=== PATIENT | female | born 1955 | race Caucasian/White ===

== ENCOUNTER 2017-03-07 22:29 | Emergency (ER) | payer MEDICAID ==
[~2017-03-07] VITALS: Ht 160 cm; Wt 54.0 kg
[2017-03-07 22:32] VITALS: Ht 160 cm; Wt 54.0 kg
[2017-03-07] MEDS ORDERED: SOD CHLORIDE 0.9% 1,000 ML IV STA (23:39)
[2017-03-07] MEDS ORDERED: ONDANSETRON 4 MG INJ IV STA (23:39)
[2017-03-07] MEDS ORDERED: morphine 4 MG/ML VIAL IV STA (23:39)
[2017-03-08 00:03] LABS: ABNORMAL IP MESSAGE 1; BASOPHIL # 0.1 10^3/ul (0.0-0.1); BASOPHILS % 0.6 % (0.0-2.0); EOSINOPHILS # 0.1 10^3/ul (0.0-0.5); EOSINOPHILS % 0.9 % (0.0-7.0); HEMATOCRIT 38.5 % (37.0-47.0); HEMOGLOBIN 12.8 g/dl (12.0-16.0); LYMPHOCYTES # 1.5 10^3/ul (0.8-2.9); LYMPHOCYTES % 16.9 % (15.0-51.0); MEAN CORPUSCULAR HEMOGLOBIN 31.9 pg (29.0-33.0); MEAN CORPUSCULAR HGB CONC 33.2 g/dl (32.0-37.0); MEAN PLATELET VOLUME 10.7 fl (7.4-10.4); MONOCYTE # 1.9 10^3/ul (0.3-0.9); MONOCYTES % 21.8 % (0.0-11.0); NEUTROPHIL # 5.2 10^3/ul (1.6-7.5); NEUTROPHILS % 59.5 % (39.0-77.0); PLATELET COUNT 324 10^3/UL (140-415); RED BLOOD COUNT 4.01 10^6/ul (4.20-5.40); RED CELL DISTRIBUTION WIDTH 15.3 % (11.5-14.5); WHITE BLOOD COUNT 8.8 10^3/ul (4.8-10.8)
[2017-03-08 00:19] LABS: INR 0.94; PROTIME 12.6 Sec (12.2-14.2)
[2017-03-08 00:20] LABS: PARTIAL THROMBOPLASTIN TIME 30.9 Sec (25.0-35.0)
[2017-03-08 00:25] LABS: ADD SCAN DIFF NO
[2017-03-08 00:38] LABS: ALBUMIN 4.6 g/dl (3.3-4.9); ALBUMIN/GLOBULIN RATIO 1.17; BILIRUBIN,INDIRECT 0.2 mg/dl (0-1.1); BILIRUBIN,TOTAL 0.2 mg/dl (0.2-1.3); CALCIUM 9.4 mg/dl (8.4-10.2); CREATININE 0.56 mg/dl (0.44-1.00); POTASSIUM 3.7 mmol/L (3.5-5.1); TOTAL PROTEIN 8.5 g/dl (6.1-8.1)
[2017-03-08 00:40] LABS: ADD UMIC NO; UR ASCORBIC ACID NEGATIVE (NEGATIVE); UR BILIRUBIN (Dip) NEGATIVE (NEGATIVE); UR BLOOD (Dip) NEGATIVE (NEGATIVE); UR CLARITY SLIGHTLY CLOUDY (CLEAR); UR COLOR YELLOW (YELLOW); UR GLUCOSE (Dip) NEGATIVE (NEGATIVE); UR KETONES (Dip) NEGATIVE (NEGATIVE); UR LEUKOCYTE ESTERASE (Dip) NEGATIVE Leu/ul (NEGATIVE); UR MUCUS FEW /HPF (NONE SEEN); UR NITRITE (Dip) NEGATIVE (NEGATIVE); UR RBC 0 /HPF (0-5); UR SPECIFIC GRAVITY (Dip) 1.015 (1.003-1.030); UR SQUAMOUS EPITHELIAL CELL FEW /HPF (FEW); UR TOTAL PROTEIN (Dip) NEGATIVE (NEGATIVE); UR UROBILINOGEN (Dip) 1+ mg/dL (NEGATIVE)
[2017-03-08] MEDS ORDERED: SOD CHLORIDE 0.9% 100 ML ONE (00:59)
[2017-03-08] MEDS ORDERED: IOHEXOL 300MG/ML 150 ML BTL ONE (00:59)
--- NOTE | 2017-03-08 01:53 | RADRPT ---
PROCEDURE: CT abdomen and pelvis with intravenous contrast. CLINICAL INDICATION: Pain. TECHNIQUE: CT of the abdomen/pelvis was performed utilizing axial images with reconstructions in s agittal and coronal planes after uneventful administration of 100 cc Omnipaque 300. The administered radiation dose is CTDI 5.8 mGy, DLP 300 mGy-cm. COMPARISON: No pertinent prior examinations were submitted for comparison. FINDINGS: Visualized Chest: There is mild atelectasis at the right lung base. Abdomen: The spleen, pancreas, gallbladder,and adrenal glands are unremarkable. The liver is diffusely dec reased in attenuation, compatible with hepatic steatosis. The kidneys are without hydronephrosis. No definite urinary calculi are seen. There is no evidence of bowel obstruction. The appendix is normal. No intra-abdominal free air is seen. Numerous diverticula are noted along the descending and sigmoid colon. There is thickening o f the mid sigmoid colon with mild surrounding inflammatory changes. There is no evidence of intra-abdominal adenopathy or free fluid. Some mild subcutaneous hematoma is noted within the left lower quadrant anterior abdominal wall. Pelvis: There is enlargement of the left greater than right gonadal veins with varices in the pelvis. Uterus is heterogeneous enhancement with multiple small fibroids. The ovaries are without enlargeme nt. There is no pelvic adenopathy or free fluid. Osseous structures: Unremarkable. IMPRESSION: Colonic diverticulosis with diverticulitis of the mid sigmoid colon. Enlargement of the gonadal veins suggestive of pelvic vascular congestion. Hepatic steatosis. Fibroid uterus. Mild subcutaneous hematoma in the left lower quadrant anterior abdominal wall questionably due to re cent trauma or medication injection. RPTAT: HIKT .Karthikeyan Flynn MD, MD Date Time Electronically viewed and signed by .Karthikeyan Flynn MD, on 03/08/2017 01:52 .T/
[2017-03-08] MEDS ORDERED: KETOROLAC 15 MG INJ IV STA (01:58)
[2017-03-08] MEDS ORDERED: CIPROFLOXACIN 400MG/D5W 200 ML IVPB ONE (02:00)
[2017-03-08] MEDS ORDERED: metroNIDAZOLE 500 MG/NS (PMX) 100 ML IVPB ONE (02:00)
--- NOTE | 2017-03-08 02:04 | ERD ---
ER Documentation Chief Complaint Date/Time DATE: 03/08/17 TIME: 02:01 Chief Complaint BIBA FOR ABD PAIN WITH N/V, HAS A LARGE HEMATOMA IN LOWER ABD HPI This 62-year-old female came in for lower mid abdominal pain mostly in the left side as well as some nausea and vomiting. She has some nausea now she has not vomited since yesterday running. States that she has a hematoma in her abdominal wall has been present is being followed. She denies any fever and chills. Denies any urinary frequency. She has not had any constipation or diarrhea. She has been having normal bowel movements. ROS All systems reviewed and are negative except as per history of present illness. Medications Home Meds Active Scripts Polyethylene Glycol* (Miralax*) 17 Gm Powd.pack, 17 GM PO DAILY for CONSTIPATION , #7 Prov:TESSIEBERE DO 03/08/17 Ondansetron (Ondansetron Odt) 4 Mg Tab.rapdis, 4 MG PO Q6H Y for NAUSEA AND/OR VOMITING, #10 TAB Prov:BERE KURTZ DO 03/08/17 Naproxen* (Naproxen*) 375 Mg Tablet, 375 MG PO BID, #20 TAB Prov:TESSIEBERE DO 03/08/17 Hydrocodone/Acetaminophen (Cedar 5-325 Tablet) 1 Each Tablet, 1 EACH PO Q6 for SEVERE PAIN LEVEL 7-10, #20 TAB Prov:TESSIEBERE DO 03/08/17 Metronidazole* (Flagyl*) 500 Mg Tablet, 500 MG PO Q8, #30 TAB Prov:BERE KURTZ DO 03/08/17 Ciprofloxacin Hcl* (Ciprofloxacin Hcl*) 500 Mg Tablet, 500 MG PO BID, #14 TAB Prov:TESSIEBERE DO 03/08/17 Allergies Allergies: Coded Allergies: No Known Allergy (Unverified , 12/15/14) PMhx/Soc History of Surgery: Yes (Knee, hemorrhoid sx) Anesthesia Reaction: No Hx Neurological Disorder: No Hx Respiratory Disorders: No Hx Cardiac Disorders: No Hx Psychiatric Problems: Yes (SCHIZOPHRENIC) Hx Miscellaneous Medical Probl: Yes (hemorrhoids) Hx Alcohol Use: Yes Hx Substance Use: No Hx Tobacco Use: Yes Smoking Status: Current every day smoker Physical Exam Vitals Vital Signs Date Time Temp Pulse Resp B/P Pulse Ox O2 Delivery O2 Flow Rate FiO2 7/3/17 02:00 74 16 112/79 97 Room Air 03/08/17 00:00 71 16 110/87 96 Room Air 03/07/17 22:32 98.3 64 20 120/82 96 Physical Exam Const: [] No acute distress, smiling Head: Atraumatic Eyes: Normal Conjunctiva ENT: Normal External Ears, Nose and Mouth. Neck: Full range of motion..~ No meningismus. Resp: Clear to auscultation bilaterally Cardio: Regular rate and rhythm, no murmurs Abd: Soft, moderate left lower quadrant abdominal tenderness without guarding or rebound, non distended. Normal bowel sounds Skin: No petechiae or rashes Back: No midline or flank tenderness Ext: No cyanosis, or edema Neur: Awake and alert and oriented 3, no focal deficit Psych: Normal Mood and Affect Result Diagram: 03/07/17 2345 03/07/17 2345 Results 24 hrs Laboratory Tests Test 03/07/17 23:45 White Blood Count 8.810^3/ul Red Blood Count 4.0110^6/ul Hemoglobin 12.8g/dl Hematocrit 38.5% Mean Corpuscular Volume 96.0fl Mean Corpuscular Hemoglobin 31.9pg Mean Corpuscular Hemoglobin Concent 33.2g/dl Red Cell Distribution Width 15.3% Platelet Count 41461^3/UL Mean Platelet Volume 10.7fl Neutrophils % 59.5% Lymphocytes % 16.9% Monocytes % 21.8% Eosinophils % 0.9% Basophils % 0.6% Nucleated Red Blood Cells % 0.0/100WBC Neutrophils # 5.210^3/ul Lymphocytes # 1.510^3/ul Monocytes # 1.910^3/ul Eosinophils # 0.110^3/ul Basophils # 0.110^3/ul Nucleated Red Blood Cells # 0.010^3/ul Prothrombin Time 12.6Sec Prothrombin Time Ratio 1.0 INR International Normalized Ratio 0.94 Activated Partial Thromboplast Time 30.9Sec Urine Color YELLOW Urine Clarity SLIGHTLY CLOUDY Urine pH 5.0 Urine Specific [place] 1.015 Urine Ketones NEGATIVEmg/dL Urine Nitrite NEGATIVEmg/dL Urine Bilirubin NEGATIVEmg/dL Urine Urobilinogen 1+mg/dL Urine Leukocyte Esterase NEGATIVELeu/ul Urine Microscopic RBC 0/HPF Urine Microscopic WBC 1/HPF Urine Squamous Epithelial Cells FEW/HPF Urine Mucus FEW/HPF Urine Hemoglobin NEGATIVEmg/dL Urine Glucose NEGATIVEmg/dL Urine Total Protein NEGATIVEmg/dl Sodium Level 140mmol/L Potassium Level 3.7mmol/L Chloride Level 102mmol/L Carbon Dioxide Level 25mmol/L Anion Gap 17 Blood Urea Nitrogen 7mg/dl Creatinine 0.56mg/dl Glucose Level 102mg/dl Calcium Level 9.4mg/dl Total Bilirubin 0.2mg/dl Direct Bilirubin 0.00mg/dl Indirect Bilirubin 0.2mg/dl Aspartate Amino Transf (AST/SGOT) 370IU/L Alanine Aminotransferase (ALT/SGPT) 157IU/L Alkaline Phosphatase 294IU/L Total Protein 8.5g/dl Albumin 4.6g/dl Globulin 3.90g/dl Albumin/Globulin Ratio 1.17 Lipase 47U/L Current Medications Medications (Trade) Dose Ordered Sig/Jesse Route PRN Reason Start Time Stop Time Status Last Admin Dose Admin Sodium Chloride (NS) 1,000 ml @ 1,000 mls/hr Q1H STAT IV 03/07/17 23:39 03/08/17 00:38 DC 03/07/17 23:59 Morphine Sulfate (morphine) 4 mg ONCE STAT IV 03/07/17 23:39 03/07/17 23:41 DC 03/08/17 00:00 Ondansetron HCl (Zofran Inj) 4 mg ONCE STAT IV 03/07/17 23:39 03/07/17 23:41 DC 03/08/17 00:00 IV Flush 10 ml 10 ml STK-MED ONCE .ROUTE 03/08/17 00:59 03/08/17 01:00 DC 03/08/17 01:06 Sodium Chloride (NS) 100 ml @ ud STK-MED ONCE .ROUTE 03/08/17 00:59 03/08/17 01:00 DC 03/08/17 01:07 Iohexol 150 ml 150 ml STK-MED ONCE .ROUTE 03/08/17 00:59 03/08/17 01:00 DC 03/08/17 01:07 Ciprofloxacin/ Dextrose 200 ml @ 200 mls/hr ONCE ONCE IVPB 03/08/17 02:00 03/08/17 02:59 DC 03/08/17 03:42 Metronidazole (Flagyl 500 Mg (Pmx)) 100 ml @ 100 mls/hr ONCE ONCE IVPB 03/08/17 02:00 03/08/17 02:59 DC 03/08/17 02:20 Ketorolac Tromethamine (Toradol) 15 mg ONCE STAT IV 03/08/17 01:58 03/08/17 02:02 DC Procedures/MDM Diverticulitis without elevated white count or any signs of sepsis. Stable vital signs. Patient's pain is easily resolved with morphine in the emergency room. Also given her a small amount of Toradol. She was hydrated with normal saline and given Zofran which resolved her nausea and she was taking good p.o. Believe she is appropriate for outpatient management of her diverticulitis. Also has fibroid uterus which may be can treated to her pain. Fatty liver with elevated liver enzymes as well. Discharge and primary care follow-up in the next 2 days as well as return precautions to the ER. Pending her laboratories and CT findings for her so that she can discuss them with her primary care doctor. We will discharge her with Cipro Flagyl, Cedar naproxen and Zofran. CT abdomen pelvis interpretation: Sigmoid diverticulitis, fibroid uterus, hepatic steatosis, see no obstruction, no free air, no fractures. Departure Diagnosis: Primary Impression: Acute diverticulitis Additional Impressions: Fibroid uterus Hepatic steatosis Elevated liver enzymes Acute abdominal pain Condition: BERE Anguiano DO Mar 08, 2017 02:04
[2017-03-08 04:30] VITALS: BP 113/69; PULSE 76; RESP 16
[2017-03-08] MEDS ORDERED: CIPR500T4 PO (04:32)
[2017-03-08] MEDS ORDERED: METR500T PO (04:32)
[2017-03-08] MEDS ORDERED: POLY17PO6 PO (04:36)
[2017-03-08] MEDS ORDERED: ONDA4TAB14 PO (04:36)
[2017-03-08] MEDS ORDERED: HYDR-906 PO (04:36)
[2017-03-08] MEDS ORDERED: NAPR-685 PO (04:36)
== END 2017-03-08 05:35 | disposition home or self-care (01) ==
LOC: E/R 22:29
DX: K57.92 Diverticulitis of intestine, part unspecified, without perforation or abscess without bleeding (principal); R10.32 Left lower quadrant pain; D25.9 Leiomyoma of uterus, unspecified; K76.0 Fatty (change of) liver, not elsewhere classified; R74.8 Abnormal levels of other serum enzymes; R11.2 Nausea with vomiting, unspecified; F17.210 Nicotine dependence, cigarettes, uncomplicated
CPT/HCPCS: 36415; 74177; 80053; 81001; 81003; 83690; 85025; 85610; 85730; 96374; 96375; J0744; J1885; J2270; J2405; J7030; Q9967; Z7502; Z7610